=== PATIENT | female | born 2000 | race Two or more races ===

== ENCOUNTER 2023-07-21 21:54 | Emergency (ER) | payer OTHER ==
[~2023-07-21] VITALS: Ht 147.3 cm; Wt 50.0 kg
[2023-07-21 22:38] VITALS: TEMP 98.5
[2023-07-22 02:30] VITALS: BP 116/67; PULSE 69; RESP 18
== END 2023-07-22 02:55 | disposition home or self-care (01) ==
LOC: EMS 21:58
DX: S13.4XXA Sprain of ligaments of cervical spine, initial encounter (principal); V89.2XXA Person injured in unspecified motor-vehicle accident, traffic, initial encounter; Y93.89 Activity, other specified; Y92.89 Other specified places as the place of occurrence of the external cause; Y99.8 Other external cause status
CPT/HCPCS: 71045; 72040; 99284